=== PATIENT | male | born 1995 | race Caucasian/White ===

== ENCOUNTER 2016-10-04 16:57 | Emergency (ER) | payer OTHER ==
[~2016-10-04] VITALS: Ht 167.6 cm; Wt 99.8 kg
--- NOTE | 2016-10-04 16:57 | NUR ---
Patient was BIBA at this time.
[2016-10-04 17:08] VITALS: BP 121/72
--- NOTE | 2016-10-04 18:50 | NUR ---
Patient to [facility].
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
[2016-10-04] MEDS ORDERED: KETOROLAC 60 MG/2 ML VIAL IM ONE (21:24)
[2016-10-04] MEDS: KETOROLAC 60 MG/2 ML VIAL IM ONE (21:38)
[2016-10-04] MEDS ORDERED: SODIUM POLYSTYRENE 15 GM/60 ML UDBTL ONE (21:41)
[2016-10-04 22:02] VITALS: BP 135/80
== END 2016-10-04 21:55 | disposition home or self-care (01) ==
LOC: MED 16:57
DX: S13.4XXA Sprain of ligaments of cervical spine, initial encounter (principal); V43.53XA Car driver injured in collision with pick-up truck in traffic accident, initial encounter; W22.11XA Striking against or struck by driver side automobile airbag, initial encounter; Y93.89 Activity, other specified; Y92.488 Other paved roadways as the place of occurrence of the external cause; Y99.8 Other external cause status
CPT/HCPCS: 72040; 99284; J1885